=== PATIENT | male | born 1995 | race Caucasian/White ===

== ENCOUNTER 2017-02-04 20:49 | Emergency (ER) | payer OTHER ==
[2017-02-05] MEDS ORDERED: Ibuprofen TAB* 400 MG PO ONE (01:14)
--- NOTE | 2017-02-05 01:17 | ED ---
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 Patient states he was being tackled and tried to refrain from that when he twisted his ankle, landing on lateral side. 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 Admits to swelling and some bruising. Has been unable to bear weight and walk due to the pain. Never hurt ankle in the past. No other injuries or complaints at this time. No PMHx. Denies numbness/ tingling in LE. - History of Current Complaint Chief Complaint: EDExtremityLower Stated Complaint: LT ANKLE INJURY Time Seen by Provider: 02/04/17 22:09 Hx Obtained From: Patient Mechanism Of Injury: Twisted Onset of Pain: Immediate, Post Accident Onset/Duration: Worse Since Severity Initially: Moderate Severity Currently: Moderate Pain Intensity: 6 Pain Scale Used: 0-10 Numeric Timing: Constant Location: Is Discrete @ - lateral malleolous left ankle Character Of Pain: Sharp, Aching Associated Signs And Symptoms: Positive: Swelling, Bruising Aggravating Factor(s): Standing, Ambulation, Weight Bearing Alleviating Factor(s): Rest Able to Bear Weight: No - due to pain/injury - Allergies/Home Medications Allergies/Adverse Reactions: Allergies Allergy/AdvReac Type Severity Reaction Status Date / Time No Known Allergies Allergy Verified 02/04/17 21:03 PMH/Surg Hx/FS Hx/Imm Hx Endocrine/Hematology History: Denies: Hx Diabetes Cardiovascular History: Denies: Hx Hypertension Respiratory History: Denies: Hx Asthma - Surgical History Surgery Procedure, Year, and Place: PT DENIES - Immunization History Immunizations Up to Date: Yes Infectious Disease History: No Infectious Disease History: Denies: Traveled Outside the [place] in Last 30 Days - Family History Known Family History: Positive: None - Social History Alcohol Use: Weekly Substance Use Type: Reports: None Smoking Status (MU): Current Some Day Smoker Review of Systems Constitutional: Negative Cardiovascular: Negative Respiratory: Negative Gastrointestinal: Negative Positive: Arthralgia, Myalgia, Decreased ROM, Edema - left ankle Skin: Negative Neurological: Negative All Other Systems Reviewed And Are Negative: Yes Physical Exam Triage Information Reviewed: Yes Vital Signs On Initial Exam: Initial Vitals Temp Pulse Resp BP Pulse Ox 98.1 F 79 18 130/90 96 02/04/17 20:59 02/04/17 20:59 02/04/17 20:59 02/04/17 20:59 02/04/17 20:59 Vital Signs Reviewed: Yes Appearance: Positive: Well-Appearing, No Pain Distress, Well-Nourished Skin: Positive: Warm, Skin Color Reflects Adequate Perfusion, Dry, Other - mild edema and ecchymosis noted on left laterall malleoulos. Negative: Cold, Soft, Pale, Erythema @ Head/Face: Positive: Normal Head/Face Inspection Eyes: Positive: Conjunctiva Clear ENT: Positive: Hearing grossly normal Neck: Positive: Supple, Nontender Respiratory/Lung Sounds: Positive: Clear to Auscultation, Breath Sounds Present. Negative: Decreased Breath Sounds, Rales, Rhonchi, Wheezes Cardiovascular: Positive: Normal, RRR, Pulses are Symmetrical in both Upper and Lower Extremities - 2+ pedal b/l. Negative: Murmur, Rub Musculoskeletal: Positive: Limited @ - left ankle due to pain and injury, Pain @ - lateral malleolus left ankle, Edema Left - lateral malleolus, Other - rest of MSK strength normal and intact. no crepitus or step off. no obvious signs of deformity. Negative: Interruption @ Neurological: Positive: Normal, Sensory/Motor Intact - sensation intact, Alert, Oriented to Person Place, Time, Reflexes Intact, NV Bundle Intact Distally, Unable to Assess Gait - due to pain/injury Diagnostics - Vital Signs Vital Signs Temp Pulse Resp BP Pulse Ox 02/04/17 21:04 98.1 F 79 18 130/90 96 02/04/17 20:59 98.1 F 79 18 130/90 96 - Laboratory Lab Statement: Any lab studies that have been ordered have been reviewed, and results considered in the medical decision making process. - Radiology left ankle Xray Interpretation: No Acute Changes Radiology Interpretation Completed By: ED Physician - Dr Cruz Lower Extremity Course/Dx - Course Course Of Treatment: given ibuprofen for pain and inflammation. X-ray obtained and negative for acute/fracture. Appears to be suffering from sprain due to GILDARDO and PE findings. RICE and NSAIDs. No concern for any other emergent etiology at this time. Aware of worsening signs and symptoms to watch out for. Follow up PCP and ortho if symptoms persist or worsen. - Diagnoses Differential Diagnosis/HQI/PQRI: Positive: Contusion, Dislocation, Fracture ( Closed), Sprain, Strain Provider Diagnoses: Left ankle sprain Discharge - Discharge Plan Condition: Stable Disposition: HOME Patient Education Materials: Ankle Sprain (ED) Referrals: [facility] [place] [facility] [Outside] Sreedhar Gibbs MD [Medical Doctor] - Additional Instructions: Continue Aleve or Ibuprofen for pain and inflammation. Rest, elevate and ice the ankle multiple times daily. Wear brace and use crutches for atleast 2 weeks until symptoms improve. Give 4 weeks for complete healing, it may take longer. Do no participate until symptoms improve. Follow up with PCP and Ortho.
[2017-02-05 01:32] VITALS: BP 127/68
--- NOTE | 2017-02-05 08:02 | RAD ---
Indication: Left ankle pain. 3 views of the left ankle demonstrates no fracture. No other bone or joint abnormality is noted. IMPRESSION: No fracture of the left ankle is noted.
== END 2017-02-05 01:32 | disposition home or self-care (01) ==
LOC: ED 20:49
DX: S93.402A Sprain of unspecified ligament of left ankle, initial encounter (principal); M25.572 Pain in left ankle and joints of left foot; Z72.0 Tobacco use; X58.XXXA Exposure to other specified factors, initial encounter; Y93.79 Activity, other specified sports and athletics; Y92.9 Unspecified place or not applicable
CPT/HCPCS: 99282; A9270-GY

== ENCOUNTER 2018-06-12 06:55 | Emergency (ER) | payer OTHER ==
--- NOTE | 2018-06-12 07:23 | ED ---
GI/ HPI - History of Current Complaint Chief Complaint: EDGeneral Time Seen by Provider: 06/12/18 07:09 Stated Complaint: GENERAL ILLNESS Onset/Duration: Started Days Ago - 2, Still Present Timing: Constant Severity: Moderate Current Severity: Moderate Pain Intensity: 8 Location of Pain: Other - back and neck Associated Signs and Symptoms: Positive: Other: - back pain, neck pain, confusion, dizziness, GALE, and photophobia - Allergy/Home Medications Allergies/Adverse Reactions: Allergies Allergy/AdvReac Type Severity Reaction Status Date / Time No Known Allergies Allergy Verified 06/12/18 06:58 Home Medications: Home Medications NK [No Home Medications Reported] 06/12/18 [History Confirmed 06/12/18] PMH/Surg Hx/FS Hx/Imm Hx Endocrine/Hematology History: Denies: Hx Diabetes Cardiovascular History: Denies: Hx Hypertension Respiratory History: Denies: Hx Asthma - Surgical History Surgery Procedure, Year, and Place: PT DENIES Infectious Disease History: No Infectious Disease History: Denies: Traveled Outside the [place] in Last 30 Days - Family History Known Family History: Positive: None - Social History Alcohol Use: Occasionally Substance Use Type: Reports: None Smoking Status (MU): Former Smoker Review of Systems Positive: Fever Positive: Photophobia Positive: Vomiting, Diarrhea, Nausea Musculoskeletal: Other - back pain, neck pain Neurological: Other - dizziness and confusion Positive: Headache All Other Systems Reviewed And Are Negative: Yes Physical Exam Triage Information Reviewed: Yes Vital Signs On Initial Exam: Initial Vitals Temp Pulse Resp BP Pulse Ox 100.5 F 113 20 146/84 93 06/12/18 06:57 06/12/18 06:57 06/12/18 06:57 06/12/18 06:57 06/12/18 06:57 Vital Signs Reviewed: Yes Diagnostics - Vital Signs Vital Signs Temp Pulse Resp BP Pulse Ox 06/12/18 07:15 105 94 06/12/18 06:57 100.5 F 113 20 146/84 93 - Laboratory Lab Statement: Any lab studies that have been ordered have been reviewed, and results considered in the medical decision making process. Discharge - Discharge Plan Referrals: No Primary Care Phys,NOPCP [Primary Care Provider] - - Attestation Statements Document Initiated by Scribe: Yes Documenting Scribe: Gatito Loera Provider For Whom Scribe is Documenting (Include Credential): Magno Beaulieu MD Scribe Attestation: Gatito Somers , scribed for Magno Beaulieu MD on 06/12/18 at 0719.
[2018-06-12] MEDS ORDERED: Acetaminophen TAB* 325 MG PO ONE (07:33)
[2018-06-12] MEDS ORDERED: NS 0.9% 1000 ML* 1,000 ML IV ONE (07:33)
--- NOTE | 2018-06-12 07:35 | ED ---
Influenza-Like Illness - HPI Summary HPI Summary: This patient is a 23 year old male presenting to the emergency department accompanied by a female with a chief complaint of n/v/d that began two days ago. He also c/o confusion, dizziness, GALE, SOB, and photophobia. These began yesterday. Along with this he describes diffuse body aches in multiple areas such as the neck, back, ABD, arms, and legs. He rates the pain 8/10 in severity. The patient states he has had 8 episodes of emesis and multiple episodes of diarrhea. He denies cough, ear pain, and congestion. The patient denies any medical history. - History of Current Complaint Chief Complaint: EDGeneral Time Seen by Provider: 06/12/18 07:09 Hx Obtained From: Patient Onset/Duration: Lasting Days - 2, Still Present Severity: Moderate Associated Signs & Symptoms: Fever, Myalgia, Headache, Vomiting, Diarrhea - Allergy/Home Medications Allergies/Adverse Reactions: Allergies Allergy/AdvReac Type Severity Reaction Status Date / Time No Known Allergies Allergy Verified 06/12/18 06:58 Home Medications: Home Medications NK [No Home Medications Reported] 06/12/18 [History Confirmed 06/12/18] PMH/Surg Hx/FS Hx/Imm Hx Endocrine/Hematology History: Denies: Hx Diabetes Cardiovascular History: Denies: Hx Cardiac Arrest, Hx Coronary Artery Disease, Hx Hypertension Respiratory History: Denies: Hx Asthma, Hx Pulmonary Edema, Hx Pulmonary Embolism - Surgical History Surgery Procedure, Year, and Place: PT DENIES Infectious Disease History: No Infectious Disease History: Denies: Traveled Outside the [place] in Last 30 Days - Family History Known Family History: Positive: Non-Contributory Negative: Diabetes, Renal Disease, Respiratory Disease, Seizure Disorder - Social History Alcohol Use: Occasionally Substance Use Type: Reports: None Smoking Status (MU): Former Smoker Review of Systems Positive: Fever Positive: Photophobia ENT: Negative - congestion Negative: Ear Ache Positive: Shortness Of Breath. Negative: Cough Positive: Abdominal Pain, Vomiting, Diarrhea, Nausea Positive: Myalgia - diffuse body aches Neurological: Other - confusion, dizziness, Positive: Headache All Other Systems Reviewed And Are Negative: Yes Physical Exam - Summary Physical Exam Summary: Appearance: The patient is well-nourished in no acute distress and in no acute pain. Skin: The skin is warm and dry and skin color reflects adequate perfusion. HEENT: The head is normocephalic and atraumatic. The pupils are equal and reactive. The conjunctivae are clear and without drainage. Nares are patent and without drainage. Mouth reveals moist mucous membranes and the throat is without erythema and exudate. The external ears are intact. The ear canals are patent and without drainage. The tympanic membranes are intact. Neck: The neck is supple with full range of motion and non-tender. There are no carotid bruits. There is no neck vein distension. Respiratory: Chest is non-tender. Lungs are clear to auscultation and breath sounds are symmetrical and equal. Cardiovascular: Heart is regular rate and rhythm. There is no murmur or rub auscultated. There is no peripheral edema and pulses are symmetrical and equal. Abdomen: The abdomen is soft and non-tender. There are normal bowel sounds heard in all four quadrants and there is no organomegaly palpated. Musculoskeletal: There is no back tenderness noted. Extremities are non-tender with full range of motion. There is good capillary refill. There is no peripheral edema or calf tenderness elicited. Neurological: Patient is alert and oriented to person, place and time. The patient has symmetrical motor strength in all four extremities. Cranial nerves are grossly intact. Deep tendon reflexes are symmetrical and equal in all four extremities. Psychiatric: The patient has an appropriate affect and does not exhibit any anxiety or depression. Triage Information Reviewed: Yes Vital Signs On Initial Exam: Initial Vitals Temp Pulse Resp BP Pulse Ox 100.5 F 113 20 146/84 93 06/12/18 06:57 06/12/18 06:57 06/12/18 06:57 06/12/18 06:57 06/12/18 06:57 Vital Signs Reviewed: Yes Diagnostics - Vital Signs Vital Signs Temp Pulse Resp BP Pulse Ox 06/12/18 07:15 105 94 06/12/18 06:57 100.5 F 113 20 146/84 93 - Laboratory Result Diagrams: 06/12/18 06:48 06/12/18 06:48 Lab Statement: Any lab studies that have been ordered have been reviewed, and results considered in the medical decision making process. Flu Symptom Course/Dx - Course Course Of Treatment: Mr. Tracey presented with a wide range of symptomatology that started with vomiting and diarrhea and progressed to generalized malaise, myalgias and arthralgias. His influenza was negative. He was nontoxic in appearance with stable vitals and laboratory workup was unremarkable. I think he likely has a viral syndrome although he and his girlfriend both ate the same thing and she had a milder form yesterday and this may be a self-limiting bacterial gastroenteritis. - Diagnoses Provider Diagnoses: Gastroenteritis Discharge - Sign-Out/Discharge Documenting (check all that apply): Patient Departure - Discharge Plan Condition: Stable Disposition: HOME Patient Education Materials: Diet for Stomach Ulcers and Gastritis (ED), Gastroenteritis (ED), Nutrition Tips for Relief of Diarrhea (ED) Referrals: [facility] [Z.BUSINESS, APPLICATION, OTHER] - 2 Days Additional Instructions: RETURN TO THE EMERGENCY DEPARTMENT FOR CHANGING OR WORSENING SYMPTOMS - Billing Disposition and Condition Condition: STABLE Disposition: Home - Attestation Statements Document Initiated by Suzy: Yes Documenting Scribe: Gatito Loera Provider For Whom Alekse is Documenting (Include Credential): Magno Beaulieu MD Scribe Attestation: IGatito , scribed for Magno Beaulieu MD on 06/12/18 at 1817. Scribe Documentation Reviewed: Yes Provider Attestation: The documentation as recorded by the Gatito marti accurately reflects the service I personally performed and the decisions made by me, Magno Beaulieu MD Status of Scribe Document: Viewed
[2018-06-12 07:58] LABS: ABS Basophils 0 10^3/ul (0-0.2); ABS Eosinophils 0 10^3/ul (0-0.6); ABS Lymphocytes 0.8 10^3/ul (1.0-4.8); ABS Monocytes 0.7 10^3/ul (0-0.8); ABS Nucleated RBC 0 10^3/ul; Eosinophil % 0.1 %; Hematocrit 41 % (42-52); Hemoglobin 14.4 g/dl (14.0-18.0); Lymphocyte % 10.3 %; Mean Corpuscular HGB Conc 35 g/dl (31-36); Mean Corpuscular Hemoglobin 29 pg (27-31); Mean Corpuscular Volume 82 fL (80-94); Mean Platelet Volume 8.1 fL (7.4-10.4); Nucleated Red Blood Cells % 0; Platelet Count 170 10^3/ul (150-450); Red Blood Count 4.94 10^6/ul (4.00-5.40); Red Cell Distribution Width 13 % (10.5-15); White Blood Count 7.6 10^3/ul (3.5-10.8)
[2018-06-12 08:12] LABS: Albumin/Globulin Ratio 1.3 (1-3); BUN/Creatinine Ratio 9.5 (8-20); C Reactive Protein 127.47 mg/L (<8.01); EGFR Non-African American 113.2 (>60); Globulin 3.2 g/dL (2-4); Potassium 3.1 mmol/L (3.5-5.0); Total Protein 7.2 g/dL (6.4-8.9)
[2018-06-12 08:32] LABS: Influenza A Molecular NEGATIVE (Negative); Influenza B Molecular NEGATIVE (Negative)
[2018-06-12 10:49] VITALS: BP 129/76
== END 2018-06-12 10:48 | disposition home or self-care (01) ==
LOC: ED 06:55
DX: K52.9 Noninfective gastroenteritis and colitis, unspecified (principal); Z87.891 Personal history of nicotine dependence
CPT/HCPCS: 36415; 80053; 85025; 86140; 96360; 99282; A9270-GY